=== PATIENT | male | born 2000 | race Caucasian/White ===

== ENCOUNTER 2021-03-14 10:20 | Emergency (ER) | payer OTHER ==
[~2021-03-14] VITALS: Ht 180.3 cm; Wt 56.7 kg
[2021-03-14 11:14] LABS: ABSOLUTE NEUTROPHILS 11.4 thou/uL (1.4-8.2); BASOPHILS 0.3 % (0.0-2.0); EOSINOPHILS 0.2 % (0.0-3.0); HEMATOCRIT 43.6 % (42.0-52.0); HEMOGLOBIN 15.1 gm/dL (14.0-18.0); LYMPHOCYTES 6.2 % (24.0-44.0); MCH 31.1 pg (26.0-34.0); MCHC 34.7 g/dL (28.0-37.0); MCV 89.6 fL (80.0-100.0); MONOCYTES 6.7 % (1.0-8.0); POLYS 86.6 % (36.0-66.0); RBC 4.87 mil/uL (4.50-6.00); WBC 13.2 thou/uL (4.0-11.0)
[2021-03-14 11:18] LABS: CALCIUM 9.1 mg/dL (8.5-10.1); POTASSIUM 3.8 mmol/L (3.5-5.1)
[2021-03-14 11:24] LABS: ALBUMIN 4.7 g/dL (3.4-5.0); TOTAL PROTEIN 7.7 g/dL (6.4-8.2)
[2021-03-14] MEDS ORDERED: NEURONTIN100 MG PO (12:13)
[2021-03-14 12:24] LABS: PLATELET ESTIMATE NORMAL
[2021-03-14 12:25] VITALS: BP 114/69
[2021-03-14 12:25] LABS: PLATELET COUNT 235 thou/uL (150-400)
== END 2021-03-14 12:25 | disposition home or self-care (01) ==
LOC: ER 10:20
PROVIDERS: Emergency Medicine
DX: R56.9 Unspecified convulsions (principal)